=== PATIENT | male | born 1990 | race Caucasian/White ===

== ENCOUNTER 2018-07-22 18:22 | Emergency (ER) | payer MEDICAID ==
[2018-07-22 18:33] VITALS: BP 125/76
[2018-07-22] MEDS ORDERED: AZITHROMYCIN 250 MG TAB PO ONE (19:40)
--- NOTE | 2018-07-22 19:41 | EDPHY ---
H & P Time Seen by Provider: 07/22/18 19:25 HPI/ROS: CHIEF COMPLAINT: Penile discharge HISTORY OF PRESENT ILLNESS: The patient is a 28-year-old male presents emergency department with penile discharge starting this morning. Patient is sexually active. Patient denies dysuria frequency. No hematuria. No abdominal pain or flank pain. No fevers or chills. REVIEW OF SYSTEMS: 10 systems were reveiwed and are negative with the exception of the elements mentioned in the history of present illness. Past medical history: Negative Past surgical history: Negative General Appearance: Alert and no distress. Head: Pupils equal. Normal. Respiratory: No respiratory distress. Cardiac: regular rate and rhythm. Abdomen: Soft, nontender nondistended : The patient has white discharge from his penis. There is no erythema. Penis is nontender. Testicles are nontender. No palpable mass. Extremities: Full range of motion, normal appearing. Skin: No rashes or lesions. Neuro: Alert. Normal mood and affect. My mom Smoking Status: Never smoked Constitutional: Initial Vital Signs Temperature (C) 37 C 07/22/18 18:31 Heart Rate 93 07/22/18 18:31 Respiratory Rate 18 07/22/18 18:31 Blood Pressure 125/76 H 07/22/18 18:31 O2 Sat (%) 97 07/22/18 18:31 O2 Delivery Mode Room Air Allergies/Adverse Reactions: No Known Allergies Allergy (Unverified 07/22/18 18:30) Home Medications: Medication Instructions Recorded NK [No Known Home Meds] 07/22/18 Medical Decision Making ED Course/Re-evaluation: In the emergency department I discussed possible etiologies with the patient. I answered all of his questions. The patient was given ceftriaxone 250 mg IM. He is given azithromycin 1 g orally. The patient was instructed to have his partners tested. The patient was given warnings prior to leaving. He will return with worsening symptoms. Differential Diagnosis: My differential includes but is not limited to STD, urinary tract infection, pyelonephritis, bacteremia, sepsis Departure - Departure Disposition: Home, Routine, Self-Care Clinical Impression: STD (male), Penile discharge Condition: Good Instructions: Safe Sex (ED), Sexually Transmitted Diseases (ED) Additional Instructions: Return with increasing pain, discharge or any other concerns. You need to have your partners tested for STD. They will need potential treatment. Referrals: [facility],. [Clinic] - 5-7 days, call for appt.
== END 2018-07-22 20:06 | disposition home or self-care (01) ==
DX: A64 Unspecified sexually transmitted disease (principal)
CPT/HCPCS: J0696